=== PATIENT | female | born 1990 | race Caucasian/White ===

== ENCOUNTER 2021-02-15 18:16 | Emergency (ER) | payer OTHER ==
[~2021-02-15] VITALS: Ht 170.2 cm; Wt 85.3 kg
== END 2021-02-15 19:11 | disposition home or self-care (01) ==
LOC: ED 18:16
DX: T74.11XA Adult physical abuse, confirmed, initial encounter (principal); S00.33XA Contusion of nose, initial encounter; F17.200 Nicotine dependence, unspecified, uncomplicated
CPT/HCPCS: 99283